=== PATIENT | female | born 1950 | race Caucasian/White ===

== ENCOUNTER 2023-12-03 14:33 | Outpatient (CLI) | payer BC, MEDICAID | END 2023-12-03 23:59 | disposition home or self-care (01) | LOC: RAD 14:33 | PROVIDERS: ATTEND Nurse Practitioner Primary Care | DX: R13.10 Dysphagia, unspecified (principal) | CPT/HCPCS: 74230 ==

== ENCOUNTER 2025-02-11 10:41 | Outpatient (CLI) | payer MEDICARE, MEDICAID ==
--- NOTE | 2025-02-11 11:51 | RADIOLOGY REPORT ---
CLINICAL INFORMATION: PRIMARY OSTEOARTHRITIS, LEFT ANKLE AND FOOT. TECHNIQUE: Axial CT images of the left ankle and foot were obtained without IV contrast. Coronal and sagittal reformatted images were obtained, reviewed, and stored. All CT scans at this medical facility are performed using dose modulation techniques as appropriate to a performed exam including the fo llowing: Automated exposure control was utilized; adjustment of the MA and/or KV according to patient size; and use of iterative reconstruction technique. 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 The prosthesis appears within normal limits in alignment and positioning. No visualized evidence for prosthesis loosening. No periprosthetic fracture identified. There is prominent osseous spurring along the caudal aspect of the medial malleolus and extending in close proximity to the medial aspect of the talus. There is osseous spurring along the caudal aspect of the lateral malleolus and closely approximating the lateral process of the talus. Chronic ossicle measuring up to 8.5 mm in greatest dimension adjacent to the inferior aspect of the lateral malleolus and lateral aspect of the lateral talar process. Chronic ossicles are seen adjacent to the proximal medial aspect of the navicular, possibly bipartite accessory navicular and/or tendinous ossificationsassociated with the distal tibialis posterior tendon. Prominent plantar calcaneal spur and spurring at the calcaneal tuberosity at the Achilles tendon insertion. There are multiple tiny densities along the anterior aspect of the ankle and hindfoot, may be sequelae of prior surgery. There is soft tissue edema along the anterior aspect of the ankle and hindfoot, may be residual sequela of previous surgery and/or nonspecific inflammation. IMPRESSION: 1. Postsurgical changes of prior total ankle replacement surgery. No CT evidence for acute prosthesis complication or acute fracture. 2. Nonacute findings as described above.
== END 2025-02-11 23:59 | disposition home or self-care (01) ==
LOC: RAD 10:41
PROVIDERS: ATTEND Podiatrist Foot & Ankle Surgery
DX: M19.072 Primary osteoarthritis, left ankle and foot (principal); M25.472 Effusion, left ankle; M81.0 Age-related osteoporosis without current pathological fracture; M25.372 Other instability, left ankle; M77.32 Calcaneal spur, left foot; M79.672 Pain in left foot; Z96.662 Presence of left artificial ankle joint
CPT/HCPCS: 73700